=== PATIENT | male | born 1990 | race Caucasian/White ===

== ENCOUNTER 2022-01-25 14:08 | Emergency (ER) | payer SELFPAY ==
[~2022-01-25] VITALS: Ht 177.8 cm; Wt 77.3 kg
[2022-01-25 14:36] VITALS: BP 170/98
[2022-01-25] MEDS ORDERED: dexamethasone sod phosphate 10mg/ml inj IM STA (19:05)
[2022-01-25] MEDS ORDERED: DEXA4TAB67 PO (19:25)
[2022-01-25] MEDS ORDERED: BUDE10.2 INH (19:25)
== END 2022-01-25 19:35 | disposition home or self-care (01) ==
LOC: ER 14:09
DX: J18.9 Pneumonia, unspecified organism (principal); U09.9 Post COVID-19 condition, unspecified; Z79.899 Other long term (current) drug therapy
CPT/HCPCS: 71045; 87635; 96372; 99284; C9803; J1100